=== PATIENT | female | born 1990 | race Caucasian/White ===

== ENCOUNTER 2019-12-28 02:14 | Inpatient (IN) ==
[2019-12-28] MEDS ORDERED: ACETAMINOPHEN 325 MG TAB PO PRN ×2 (03:02→19:21)
[2019-12-28] MEDS ORDERED: BETAMETH SOD PHOS/ACETATE IA 6 MG/ML IM STA (03:02)
[2019-12-28] MEDS ORDERED: ONDANSETRON INJ 2 MG/ML 2 ML VIAL IV PRN ×2 (03:02→10:36)
[2019-12-28] MEDS ORDERED: LACTATED RINGER'S 1,000 ML IV ONE (03:06)
--- NOTE | 2019-12-28 03:07 | History & Physical Report ---
Date of Service December 28, 2019 Assessment & Plan (1) contractions: (2) Left flank pain: Patient with c/o L flank pain. On exam, though cervical exam somewhat limited by patient intolerance, my best assessment is 4cm/90% so this obviously introduces concern for PTL. Will need to assess after 1-2hr to confirm, but giving steroids now due to suspicion. Also working up for L renal stone given her specific description of unilateral pain and reaction during L CVA exam. Discussed lack of clarity in diagnosis with patient and . Will begin LR bolus now as hydration may be helpful in event of either stone, contractions, or both. Pt aware that at this gestational age we would not stop labor and would plan to deliver here, though chances of baby transfer are higher than at full term. 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 History of Present Illness Chief Complaint: 29yo female at 35w5d of called at 1am with c/o L flank pain. Initial onset at 10pm, pain went away by itself. It resumed 11pm and remained constant after that. She stated it came on immediately after urination and did not get better at all. She initially tried tylenol and heat at home, but as this did not help, she came into L&D. States no h/o kidney stones. Has good FM, no [id number] pain that would fit the description of contractions, no LOF and no VB. No KESSLER, RUQ or R side pain at all, no vision changes. No dysuria prior to this pain and no hematuria. All Active Problems (Updated 07/03/19 @ 14:47 by Kam Appiah MD) Female infertility Supervision of normal first Primary Care Provider: NO PCP Allergies Allergy/AdvReac Type Severity Reaction Status Date / Time No Known Drug Allergies Allergy Unknown Verified 12/28/19 02:20 Home Medications Home Medications Medication Instructions Recorded Confirmed Type lactobacillus combination no.9 PO 09/11/19 12/17/19 History polysaccharide iron complex 150 mg 150 mg PO DAILY #30 cap 11/07/19 12/28/19 Rx iron capsule PNV cmb#95-ferrous fumarate-FA 1 tab PO DAILY 12/28/19 12/28/19 History [] Patient History Medical History History of varicella Surgical History S/P wisdom tooth extraction Family History Father Colorectal cancer Kidney disease Liver disease Diabetes Social History Preferred Language: [place] Communication Ability: Effective Lab Rn Required: No Beliefs That Will Affect Care: None marital status: Current Living Situation: Spouse Other Information That Helps Us Care for You: No Feels Safe at Home: Yes Safety Concerns: Feels Safe At This Time Smoking Status: Never smoker Second Hand Exposure: No ; Hx Alcohol Use: No Hx Substance Use: No Review of Systems All systems reviewed & are unremarkable except as noted in HPI & below Physical Exam Constitutional: WD/WN, vitals as above no acute distress Eyes: PERRL, conjunctivae normal, anicteric sclerae ENMT: external ear and nose normal, oropharynx normal Neck: normal visual inspection Respiratory: normal respiratory effort and able to speak in complete sentences; no respiratory distress and does not use accessory muscles Cardiovascular: Rate/Rhythm: regular rate and regular rhythm Gastrointestinal (Abdomen): Inspection/Auscultation: + abdomen distended (gravid); no abdominal wall ecchymosis Percussion/Palpation: abdomen nontender, no guarding and abdomen not rigid (Does not palpate firm with ctx.) Patient is without CVA TTP on R. She jumped visibly with CVA percussion on L, but when asked, states there is "not really" pain there. Difficult to tell if patient is being stoic. Notes tender with palpation around L flank and states that is actually worse than the renal area / back. Musculoskeletal: no cyanosis or clubbing, extremities motor strength 5/5 Skin: no rashes, warm and dry Neurologic: patellar DTR's 2+ bilat, sensation intact normal touch/pain/proprioception Psychiatric: A+Ox3, euthymic affect Genitourinary: Manual OB Exam: + cervical dilation (limited by patient tolerance / positioning - fists under buttocks) 4 cm, + cervical effacement 90%, + station -2 and + amniotic fluid (no leaking evident) OB Exam Monitor Tracing: + external uterine monitor used (appears to be ctx Q2min) and + category I Results & Data Vital Signs (Past 12 Hours) Vital Signs Temp Pulse Resp BP 12/28/19 02:24 98.1 F 78 18 105/58 L 12/28/19 02:19 78 105/58 L Code Status & VTE Plan VTE Prophylaxis Plan VTE Prophylaxis will be ordered: Yes Coding Level of Care Code None Diagnoses contractions O47.9 Left flank pain R10.9
[2019-12-28 03:27] LABS: Appearance Urine Cloudy (Clear); Bilirubin Urine Negative (Negative); Blood Urine Negative (Negative); Color Urine Yellow; Epithelial Cell Urine Auto >30 /lpf (0-5); Glucose Urine UA Negative (Negative); Ketones Urine 1+ (Negative); Leukocyte Esterase Urine Trace (Negative); Nitrite Urine Negative (Negative); Protein Urine Negative (Negative); RBC Urine Automated 0-4 /hpf (0-4); Specific Gravity Urine 1.016 (1.000-1.030); Urobilinogen Urine Negative (Negative); pH Urine 7.5 (4.5-7.5)
[2019-12-28 03:28] LABS: Basophils # (auto) 0.02 K/uL (0-0.2); Basophils % (auto) 0.1 %; Eosinophils # (auto) 0.07 K/uL (0-0.5); Eosinophils % (auto) 0.5 %; Hemoglobin 11.2 g/dL (12.0-16.0); Immature Granulocytes # (auto) 0.22 K/uL (0.00-0.02); Immature Granulocytes % (auto) 1.6 %; Lymphocytes # (auto) 0.97 K/uL (1.2-3.4); Lymphocytes % (auto) 7.1 %; Mean Corpuscular Hemoglobin 28.4 pg (25-34); Mean Corpuscular Volume 86.3 fL (80-100); Monocytes # (auto) 1.14 K/uL (0.11-0.59); Monocytes % (auto) 8.3 %; Neutrophils % (auto) 82.4 %; Platelet Count 187 K/uL (130-400); RDW Coefficient of Variation 15.8 % (11.5-14.5); RDW Standard Deviation 50.2 fL (36.4-46.3); Red Blood Count 3.94 M/uL (4.2-5.4); White Blood Count 13.72 K/uL (4.8-10.8)
[2019-12-28 03:45] LABS: Albumin Level 2.4 gm/dl (3.4-5.0); BUN Creatinine Ratio 13.7 (10-20); Calcium 8.9 mg/dl (8.5-10.1); Creatinine Clr Calc Pharmacy 112.7 ml/min; Est GFR (African American) 137.4; Est GFR (Non-African American) 118.5; Potassium 3.8 mmol/L (3.5-5.1)
[2019-12-28 03:48] LABS: Albumin Globulin Ratio 0.6 (0.9-2); Bilirubin,Total 0.2 mg/dl (0.2-1); Globulin 3.7 gm/dl (2.5-4.0); Total Protein 6.1 gm/dl (6.4-8.2)
[2019-12-28 04:00] LABS: Amorphous Sediment Urine Present (None Prsent); Mucus Urine Present (None Prsent)
[2019-12-28] MEDS ORDERED: LACTATED RINGER'S 1,000 ML IV PRN (04:01)
[2019-12-28] MEDS ORDERED: PENICILLIN G POTASSIUM 6 MU in DEXTROSE 5% 250 ML IV STA (04:01)
[2019-12-28] MEDS ORDERED: OXYTOCIN 30 UNITS/500 ML BAG IV PRN ×3 (04:01→19:21)
[2019-12-28 04:03] LABS: Renal Epithelial Cells Urine 0-5 /lpf (0-5)
[2019-12-28 04:04] LABS: Bacteria Urine Automated 1+ (Negative)
--- NOTE | 2019-12-28 04:06 | Labor Progress Brief Note ---
Date of Service December 28, 2019 Subjective Increasing discomfort. Patient observation here on L&D shows that she is obviously grimacing / reacting with contractions every 2 min and now palpates mod-strong as well. She notes pain has moved more to the front around her umbilicus. Assessment & Plan (1) labor in third trimester: Diagnosis now confirmed via cervical change = labor. BMTZ already given. Start abx for GBS unknown. Epidural on request. Peds notified via nursery staff. Explained to patient and that we are managing as PTL, can request epidural if needed, but at this GA with intact membranes will not be augmenting. Given UA now showing no blood, and flank pain has changed to abdominal / uterine pain, cancelled US as highly doubt renal stone. Physical Exam Physical Exam: Ctx palpate mod-strong. Q2min toco FHT Cat 1 Cvx 5/90/+1 Results & Data Vital Signs (Past 12 Hours) Vital Signs Temp Pulse Resp BP 12/28/19 02:24 98.1 F 78 18 105/58 L 12/28/19 02:19 78 105/58 L Laboratory Results Laboratory Results - last 24 hr 12/28/19 12/28/19 12/28/19 03:00 03:21 03:21 WBC 13.72 H RBC 3.94 L Hgb 11.2 L Hct 34.0 L MCV 86.3 MCH 28.4 MCHC Pending RDW Std Deviation 50.2 H RDW Coeff of [place] 15.8 H Plt Count 187 MPV 9.0 Immature Gran % (Auto) 1.6 Neut % (Auto) 82.4 Lymph % (Auto) 7.1 [place] % (Auto) 8.3 Eos % (Auto) 0.5 Baso % (Auto) 0.1 Immature Gran # (Auto) 0.22 H Neut # (Auto) 11.30 H Lymph # (Auto) 0.97 L [place] # (Auto) 1.14 H Eos # (Auto) 0.07 Baso # (Auto) 0.02 Sodium 138 Potassium 3.8 Chloride 106 Carbon Dioxide 27 Anion Gap 5.0 BUN 9 Creatinine 0.66 Est Cr Clr Drug Dosing 112.7 Est GFR ( Amer) 137.4 Est GFR (Non-Af Amer) 118.5 BUN/Creatinine Ratio 13.7 Glucose 125 H Calcium 8.9 Total Bilirubin 0.2 AST 26 ALT 26 Alkaline Phosphatase 141 H Total Protein 6.1 L Albumin 2.4 L Globulin 3.7 Albumin/Globulin Ratio 0.6 L Urine Color Yellow Urine Appearance Cloudy A Urine pH 7.5 Ur Specific [place] 1.016 Urine Protein Negative Urine Glucose (UA) Negative Urine Ketones 1+ H Urine Blood Negative Urine Nitrite Negative Urine Bilirubin Negative Urine Urobilinogen Negative Ur Leukocyte Esterase Trace H Urine WBC (Auto) 5-10 H Urine RBC (Auto) 0-4 U Hyaline Cast (Auto) 1-5 U Epithel Cells (Auto) >30 H Urine Bacteria (Auto) 1+ H Ur Renal Epithelial Cell 0-5 Amorphous Sediment Present A Granular Casts 1-5 H Urine Mucus Present A Coding Level of Care Code None Diagnoses labor in third trimester O60.03
[2019-12-28 04:10] LABS: Mean Corpuscular Hgb Conc 32.9 g/dL (32-36)
[2019-12-28] MEDS: LACTATED RINGER'S 1,000 ML IV PRN ×2 (04:21→10:18)
--- NOTE | 2019-12-28 07:45 | Labor Progress Brief Note ---
Date of Service December 28, 2019 Subjective Pain is more towards her back again, less in the belly. Still severe enough that she is visibly uncomfortable. Assessment & Plan (1) labor in third trimester: Patient in labor based on cervical change that occurred shortly after admission. She was then started on antibiotics for Group B Strep unknown at GA <37wk. She was also given a tylenol, although she was never febrile, due to intermittently elevated heart rate baseline and for discomfort. In the following several hours her contractions have spaced apart and FHT are consistently Cat 1. Cervix has stabilized for now at 5cm. Discussed that although I expect her dilation to progress at some point, it is possible that early infection was the trigger for her PTL and the antibiotic therapy is slowing the process. Plan continued observation and antibiotics for now. labor delivery status: without delivery Qualified Code(s): O60.03 - labor without delivery, third trimester Physical Exam Physical Exam: [place] has spaced apart significantly. FHT Cat 1. tachycardia noted at times after her admission has resolved, baseline now 145. Cervix unchanged at 5/90/+1. Results & Data Vital Signs (Past 12 Hours) Vital Signs Temp Pulse Resp BP 12/28/19 07:07 97.5 F L 76 20 118/56 L 12/28/19 05:28 98.4 F 83 16 116/65 12/28/19 04:23 98.6 F 12/28/19 02:24 98.1 F 78 18 105/58 L 12/28/19 02:19 78 105/58 L Coding Level of Care Code None Diagnoses labor in third trimester O60.03 labor delivery status: without delivery
[2019-12-28] MEDS: PENICILLIN G POTASSIUM 3 MU in DEXTROSE 5% 100 ML IV PRN ×3 (08:44→17:07)
[2019-12-28] MEDS ORDERED: BUPIVACAINE 0.25% 30 ML VIAL ONE (09:45)
[2019-12-28] MEDS ORDERED: fentaNYL citrate 100 MCG/2 ML VIAL ONE (09:45)
[2019-12-28] MEDS ORDERED: ePHEDrine sulfate 50 MG/ML AMP ONE (09:45)
[2019-12-28] MEDS ORDERED: fentaNYL 2MCG/ML ROPIV 1.25MG/ML 100 ML BAG EPI ONE (09:45)
--- NOTE | 2019-12-28 09:51 | Labor Progress Brief Note ---
Date of Service December 28, 2019 Subjective Reason For Note: Routine Evaluation pt having constant back pain and ctx on top of this. she is uncomfortable. Assessment & Plan (1) labor in third trimester: cx change continues c/w labor. desires epidural for pain. then plan arom. she is s/p pcn x 2 doses. peds made aware of plan and my request of presence at delivery--told nursery nurse as md was not immediately avail to discuss. labor delivery status: without delivery Qualified Code(s): O60.03 - labor without delivery, third trimester Physical Exam Constitutional: WD/WN, vitals as above Genitourinary: Manual OB Exam: + cervical dilation 6 cm, + cervical effacement 100% and + station + 2 OB Exam Monitor Tracing: + external FHT monitor used (140 mod variability), + external uterine monitor used (q3-5), + category I and + normal FHT variability Results & Data Vital Signs (Past 12 Hours) Vital Signs Temp Pulse Resp BP 12/28/19 08:45 80 107/60 12/28/19 08:43 97.7 F 20 12/28/19 07:07 97.5 F L 76 20 118/56 L 12/28/19 05:28 98.4 F 83 16 116/65 12/28/19 04:23 98.6 F 12/28/19 02:24 98.1 F 78 18 105/58 L 12/28/19 02:19 78 105/58 L Coding Level of Care Code None Diagnoses labor in third trimester O60.03 labor delivery status: without delivery
--- NOTE | 2019-12-28 09:55 | Anesthesiology Consultation ---
Date of Service December 28, 2019 Assessment & Plan Chart Review Chart Review: Acceptable Risk for Surgery and Acceptable Risk for Labor Epidural Consults Requested none ASA ASA2 Proposed Anesthesia Anesthesia Type: Labor Epidural Risk / Benefits Reviewed With: PT / POA / Parent / Guardian, Accepts Plan and Informed Consent Obtained History Height/Weight Height: 5 ft 2 in Weight: 68.039 kg Allergies Allergy/AdvReac Type Severity Reaction Status Date / Time No Known Drug Allergies Allergy Unknown Verified 12/28/19 02:20 Medications Home Medications Medication Instructions Recorded Confirmed Last Taken polysaccharide iron complex 150 mg 150 mg PO DAILY #30 cap 11/07/19 12/28/19 12/27/19 20:00 iron capsule PNV cmb#95-ferrous fumarate-FA 1 tab PO DAILY 12/28/19 12/28/19 12/27/19 20:00 [] Active Medications Generic Name Dose Route Start Last Admin Trade Name Freq PRN Reason Stop Dose Admin Lactated Ringer's 1,000 mls @ 125 mls/hr 12/28/19 03:02 12/28/19 10:18 Lr IV 01/27/20 03:01 125 mls/hr .Q8H PRN Administration L&D Protocol Protocol Penicillin G Potassium 3 mu/ 106 mls @ 100 mls/hr 12/28/19 04:01 12/28/19 08:44 Dextrose IV 01/07/20 04:00 100 mls/hr Q4H PRN Administration Give until delivery NPO Last Intake of Fluids Comment: assume full Last Intake of Solids Comment: assume full Past Medical History Medical History History of varicella Exercise / Class Metabolic Activity II 4-5 Yardwork/Stairs/Walk up hill Past Family History Family History Father Colorectal cancer Kidney disease Liver disease Diabetes Past Surgical History Surgical History S/P wisdom tooth extraction Past Anesthesia History No Hx of Anesthesia Complications and No Family Hx of Anesthesia Complications History of PONV No Hx of PONV and No Hx of Motion Sickness Social History Smoking Status: Never smoker Hx Alcohol Use: No Hx Substance Use: No substance use type: does not use Physical Exam Vital Signs Last Vital Signs Temp 36.5 C 12/28/19 08:43 Pulse 86 12/28/19 10:35 Resp 20 12/28/19 08:43 BP 117/69 12/28/19 10:35 Pulse Ox 100 12/28/19 10:31 ENMT Mouth: no TMJ abnormality Thyromental Distance: > or= 3.5 Finger Breadths Mallampati Class: II Neck normal visual inspection and trachea midline; neck extension not limited Respiratory normal respiratory effort Auscultation: lungs clear to auscultation bilaterally Cardiovascular Rate/Rhythm: regular rate and regular rhythm Heart Sounds: no murmur Musculoskeletal Spine: normal cervical ROM Extremities: full ROM of extremities Neurologic moves all extremities Psychiatric Orientation: alert and oriented x 3 Testing Laboratory Results 12/28/19 03:21 12/28/19 03:21 Urine Color Yellow 12/28/19 03:00 Urine Appearance Cloudy (Clear) A 12/28/19 03:00 Urine pH 7.5 (4.5-7.5) 12/28/19 03:00 Ur Specific [place] 1.016 (1.000-1.030) 12/28/19 03:00 Urine Protein Negative (Negative) 12/28/19 03:00 Urine Glucose (UA) Negative (Negative) 12/28/19 03:00 Urine Ketones 1+ (Negative) H 12/28/19 03:00 Urine Nitrite Negative (Negative) 12/28/19 03:00 Ur Leukocyte Esterase Trace (Negative) H 12/28/19 03:00 Urine WBC (Auto) 5-10 /hpf (0-5) H 12/28/19 03:00 Urine RBC (Auto) 0-4 /hpf (0-4) 12/28/19 03:00 U Hyaline Cast (Auto) 1-5 /lpf (0-5) 12/28/19 03:00 U Epithel Cells (Auto) >30 /lpf (0-5) H 12/28/19 03:00 Urine Bacteria (Auto) 1+ (Negative) H 12/28/19 03:00
[2019-12-28] MEDS ORDERED: METOCLOPRAMIDE HCL 20 MG in SODIUM CHLORIDE 0.9% 50 ML IV PRN (10:36)
[2019-12-28] MEDS ORDERED: NALOXONE HCL 0.4 MG/1 ML VIAL/CARP IV PRN (10:36)
[2019-12-28] MEDS ORDERED: DiphenhydrAMINE HCL 50 MG/ML VIAL IV PRN (10:36)
[2019-12-28] MEDS ORDERED: NALOXONE HCL 1 MG in SODIUM CHLORIDE 0.9% 1000ML 1,000 ML IV PRN (10:36)
[2019-12-28] MEDS ORDERED: fentaNYL 2MCG/ML ROPIV 1.25MG/ML 100 ML BAG EPI PRN (10:36)
[2019-12-28] MEDS ORDERED: ePHEDrine sulfate 50 MG/ML AMP IV PRN (10:36)
[2019-12-28] MEDS ORDERED: PROMETHAZINE HCL 25 MG in SODIUM CHLORIDE 0.9% 50 ML IV PRN (10:36)
[2019-12-28] MEDS ORDERED: NALBUPHINE HCL INJ 10 MG/ML AMP IV PRN (10:36)
--- NOTE | 2019-12-28 11:14 | Labor Progress Brief Note ---
Date of Service December 28, 2019 Subjective Reason For Note: Routine Evaluation pt now comfortable with epidural. Assessment & Plan (1) labor in third trimester: will see how arom facilitates labor pattern. fhts categ 1. comfortable with epidural. labor delivery status: without delivery Qualified Code(s): O60.03 - labor without delivery, third trimester Physical Exam Constitutional: WD/WN, vitals as above Psychiatric: A+Ox3, euthymic affect Genitourinary: Manual OB Exam: + cervical dilation 6 cm, + cervical effacement 80%, + station + 1 and + amniotic fluid (AROM) clear OB Exam Monitor Tracing: + external FHT monitor used (140 mod variability), + external uterine monitor used (q2), + category I and + normal FHT variability Results & Data Vital Signs (Past 12 Hours) Vital Signs Temp Pulse Resp BP Pulse Ox 12/28/19 11:11 70 97 12/28/19 11:06 96 H 99 12/28/19 11:01 88 100 12/28/19 10:56 82 99 12/28/19 10:52 84 112/69 12/28/19 10:51 80 99 12/28/19 10:47 85 121/69 12/28/19 10:46 92 H 99 12/28/19 10:42 82 118/71 12/28/19 10:41 84 99 12/28/19 10:36 80 100 12/28/19 10:35 86 117/69 12/28/19 10:33 77 111/66 12/28/19 10:31 81 113/68 100 12/28/19 10:29 85 113/64 12/28/19 10:27 83 109/62 12/28/19 10:26 91 H 99 12/28/19 10:25 76 113/63 12/28/19 10:23 77 106/57 L 12/28/19 10:21 77 108/56 L 100 12/28/19 10:19 90 81 L 12/28/19 10:16 100 H 100 12/28/19 10:11 86 100 12/28/19 10:06 89 100 12/28/19 10:01 82 100 12/28/19 09:56 85 100 12/28/19 09:50 76 113/64 12/28/19 08:45 80 107/60 12/28/19 08:43 97.7 F 20 12/28/19 07:07 97.5 F L 76 20 118/56 L 12/28/19 05:28 98.4 F 83 16 116/65 12/28/19 04:23 98.6 F 12/28/19 02:24 98.1 F 78 18 105/58 L 12/28/19 02:19 78 105/58 L Coding Level of Care Code None Diagnoses labor in third trimester O60.03 labor delivery status: without delivery
--- NOTE | 2019-12-28 13:59 | Labor Progress Brief Note ---
Date of Service December 28, 2019 Subjective Reason For Note: Routine Evaluation feels baby movement up high on abdomen Assessment & Plan (1) labor in third trimester: good cx change. fhts categ 1. pcn for gbs unknown. labor delivery status: without delivery Qualified Code(s): O60.03 - labor without delivery, third trimester Physical Exam Constitutional: WD/WN, vitals as above Psychiatric: A+Ox3, euthymic affect Genitourinary: Manual OB Exam: + cervical dilation 7 cm, + cervical effacement 100% and + station + 1 OB Exam Monitor Tracing: + external FHT monitor used (145 mod variability), + external uterine monitor used (q2-3), + category I and + normal FHT variability Results & Data Vital Signs (Past 12 Hours) Vital Signs Temp Pulse Resp BP Pulse Ox 12/28/19 13:51 74 100 12/28/19 13:46 80 100 12/28/19 13:42 75 106/60 12/28/19 13:41 76 100 12/28/19 13:36 80 99 12/28/19 13:31 76 99 12/28/19 13:26 71 103/59 L 97 12/28/19 13:21 67 98 12/28/19 13:16 80 99 12/28/19 13:12 70 114/60 12/28/19 13:11 75 100 12/28/19 13:06 78 100 12/28/19 13:01 71 99 12/28/19 12:56 75 105/55 L 100 12/28/19 12:51 78 100 12/28/19 12:50 99.0 F 20 12/28/19 12:46 67 99 12/28/19 12:41 72 106/56 L 100 12/28/19 12:36 71 98 12/28/19 12:31 67 99 12/28/19 12:26 66 103/59 L 99 12/28/19 12:21 81 97 12/28/19 12:16 75 99 12/28/19 12:12 71 107/55 L 12/28/19 12:11 71 98 12/28/19 12:06 77 98 12/28/19 12:01 72 98 12/28/19 11:56 73 105/56 L 98 12/28/19 11:51 74 98 12/28/19 11:46 79 99 12/28/19 11:42 75 109/58 L 12/28/19 11:41 74 99 12/28/19 11:36 78 100 12/28/19 11:31 75 98 12/28/19 11:26 73 104/61 98 12/28/19 11:21 71 99 12/28/19 11:16 72 98 12/28/19 11:12 98.1 F 64 110/62 12/28/19 11:11 70 97 12/28/19 11:06 96 H 99 12/28/19 11:01 88 100 12/28/19 10:56 82 99 12/28/19 10:52 84 112/69 12/28/19 10:51 80 99 12/28/19 10:47 85 121/69 12/28/19 10:46 92 H 99 12/28/19 10:42 82 118/71 12/28/19 10:41 84 99 12/28/19 10:36 80 100 12/28/19 10:35 86 117/69 12/28/19 10:33 77 111/66 12/28/19 10:31 81 113/68 100 12/28/19 10:29 85 113/64 12/28/19 10:27 83 109/62 12/28/19 10:26 91 H 99 12/28/19 10:25 76 113/63 12/28/19 10:23 77 106/57 L 12/28/19 10:21 77 108/56 L 100 12/28/19 10:19 90 81 L 12/28/19 10:16 100 H 100 12/28/19 10:11 86 100 12/28/19 10:06 89 100 12/28/19 10:01 82 100 12/28/19 09:56 85 100 12/28/19 09:50 76 113/64 12/28/19 08:45 80 107/60 12/28/19 08:43 97.7 F 20 12/28/19 07:07 97.5 F L 76 20 118/56 L 12/28/19 05:28 98.4 F 83 16 116/65 12/28/19 04:23 98.6 F 12/28/19 02:24 98.1 F 78 18 105/58 L 02/01/20 02:19 78 105/58 L Coding Level of Care Code None Diagnoses labor in third trimester O60.03 labor delivery status: without delivery
--- NOTE | 2019-12-28 19:19 | Delivery Summary ---
Vaginal Delivery Summary Date of Service December 28, 2019 Vaginal Delivery Summary The patient dilated to complete and pushed to deliver a viable male infant Apgars 8 and 9 via over 2nd degree perineal laceration. Mouth and nose bulb suctioned at perineum. Shoulders and body delivered with ease. was vigorous and crying at . Cord clamped at 30 seconds of life and to maternal abdomen where the cord was then doubly clamped and cut. Placenta delivered spontaneously and intact, three-vessel cord. Hemostasis achieved with dilute pitocin and uterine massage. Laceration repaired in the usual fashion with 3-0 vicryl. Cord blood obtained. Cervix and sulci intact. EBL 300 cc. Mother and baby stable recovery. [facility] Vaginal Delivery Charge Vaginal Delivery Codes: 93669 global code for the antepartum, delivery, and post-
[2019-12-28] MEDS ORDERED: OXYCODONE/ACETAMINOPHEN 5mg/325mg TAB PO PRN (19:21)
[2019-12-28] MEDS ORDERED: OXYTOCIN 20 UNITS in LACTATED RINGER'S 1,000 ML IV SCH (19:30)
[2019-12-28] MEDS ORDERED: SUPERCREAM 0.870% 15 GM JAR EXT PRN (19:34)
[2019-12-28] MEDS ORDERED: BENZOCAINE 20% AER SPR 82.5 GM CAN EXT PRN (19:34)
[2019-12-28] MEDS ORDERED: HYDROCORTISONE ACETATE 25 MG SUPP PR PRN (19:34)
[2019-12-28] MEDS ORDERED: DIPHTHERIA/TETANUS/PERTUSSIS 0.5 ML SYR/VIAL IM ONE (19:34)
[2019-12-28] MEDS: IBUPROFEN 600 MG TAB PO PRN (20:59)
[2019-12-28] MEDS: DOCUSATE SODIUM 100 MG CAP PO SCH (22:30)
--- NOTE | 2019-12-28 22:41 | Anesthesiology Progress Note ---
Date of Service December 28, 2019 Anesthesia Post Procedure Vital Signs Vital Signs: Temp Pulse Pulse Resp BP BP Pulse Ox 12/28/19 22:05 36.9 C 68 20 106/64 12/28/19 21:29 75 100/54 L 12/28/19 21:15 75 20 100/54 L 12/28/19 21:14 80 101/54 L 12/28/19 20:59 90 101/58 L 12/28/19 20:45 90 18 101/58 L 12/28/19 20:44 79 105/55 L 12/28/19 20:29 88 104/55 L 12/28/19 20:15 86 20 108/58 L 12/28/19 20:14 86 108/58 L 12/28/19 20:01 80 104/50 L 12/28/19 20:00 86 20 108/58 L 12/28/19 19:45 88 18 109/55 L 12/28/19 19:44 88 109/55 L 12/28/19 19:30 90 20 114/57 L 12/28/19 19:29 90 114/57 L 12/28/19 19:15 36.9 C 96 H 20 110/55 L 12/28/19 19:01 148 H 99 12/28/19 18:59 104 H 84 L 12/28/19 18:56 109 H 120/59 L 99 12/28/19 18:51 113 H 99 12/28/19 18:48 114 H 79 L 12/28/19 18:46 143 H 98 12/28/19 18:42 126 H 117/56 L 12/28/19 18:41 137 H 96 12/28/19 18:36 108 H 94 12/28/19 18:31 114 H 99 12/28/19 18:27 105 H 116/59 L 12/28/19 18:26 112 H 77 L 12/28/19 18:22 102 H 91 12/28/19 18:21 97 H 97 12/28/19 18:16 79 100 12/28/19 18:11 82 107/58 L 100 12/28/19 18:06 83 98 12/28/19 18:01 89 99 12/28/19 17:57 78 116/64 12/28/19 17:56 79 98 12/28/19 17:51 83 100 12/28/19 17:46 82 99 12/28/19 17:41 97 H 124/69 96 12/28/19 17:40 105 H 94 12/28/19 17:36 77 100 12/28/19 17:31 78 100 12/28/19 17:27 37.1 C 80 20 132/68 12/28/19 17:26 97 H 100 12/28/19 17:21 80 98 12/28/19 17:16 80 100 12/28/19 17:12 73 109/61 12/28/19 17:11 68 99 12/28/19 17:06 71 100 12/28/19 17:01 73 100 12/28/19 16:56 81 109/61 100 12/28/19 16:51 89 100 12/28/19 16:46 84 100 12/28/19 16:41 77 20 110/59 L 100 12/28/19 16:36 72 99 12/28/19 16:31 73 100 12/28/19 16:27 68 109/59 L 12/28/19 16:26 66 99 12/28/19 16:21 74 100 12/28/19 16:16 69 99 12/28/19 16:13 71 106/59 L 12/28/19 16:11 73 100 12/28/19 16:06 85 100 12/28/19 16:01 83 100 12/28/19 15:57 70 20 115/58 L 12/28/19 15:56 71 100 12/28/19 15:51 75 99 12/28/19 15:46 75 100 12/28/19 15:41 71 104/60 99 12/28/19 15:36 81 99 12/28/19 15:31 77 100 12/28/19 15:26 80 102/55 L 100 12/28/19 15:21 80 99 12/28/19 15:16 74 99 12/28/19 15:12 85 110/55 L 12/28/19 15:11 85 99 12/28/19 15:06 86 99 12/28/19 15:01 84 100 12/28/19 14:56 78 18 113/63 99 12/28/19 14:51 78 100 12/28/19 14:46 69 99 12/28/19 14:45 98 H 92 12/28/19 14:42 71 117/59 L 12/28/19 14:41 72 100 12/28/19 14:36 71 99 12/28/19 14:31 73 98 12/28/19 14:26 75 109/61 99 12/28/19 14:21 75 100 12/28/19 14:16 82 100 12/28/19 14:12 74 108/62 12/28/19 14:11 72 99 12/28/19 14:06 72 100 12/28/19 14:01 73 100 12/28/19 13:57 70 20 111/60 12/28/19 13:56 83 100 12/28/19 13:51 74 100 12/28/19 13:46 80 100 12/28/19 13:42 75 20 106/60 12/28/19 13:41 76 100 12/28/19 13:36 80 99 12/28/19 13:31 76 99 12/28/19 13:26 71 103/59 L 97 12/28/19 13:21 67 98 12/28/19 13:16 80 99 12/28/19 13:12 70 114/60 12/28/19 13:11 75 100 12/28/19 13:06 78 100 12/28/19 13:01 71 99 12/28/19 12:56 75 20 105/55 L 100 12/28/19 12:51 78 100 12/28/19 12:50 37.2 C 20 12/28/19 12:46 67 99 12/28/19 12:41 72 106/56 L 100 12/28/19 12:36 71 98 12/28/19 12:31 67 99 12/28/19 12:26 66 103/59 L 99 12/28/19 12:21 81 97 12/28/19 12:16 75 99 12/28/19 12:12 71 107/55 L 12/28/19 12:11 71 98 12/28/19 12:06 77 98 12/28/19 12:01 72 98 12/28/19 11:56 73 20 105/56 L 98 12/28/19 11:51 74 98 12/28/19 11:46 79 99 12/28/19 11:42 75 109/58 L 12/28/19 11:41 74 99 12/28/19 11:36 78 100 02/01/20 11:31 75 98 12/28/19 11:26 73 104/61 98 12/28/19 11:21 71 99 12/28/19 11:16 72 98 12/28/19 11:12 36.7 C 64 110/62 12/28/19 11:11 70 97 12/28/19 11:06 96 H 99 12/28/19 11:01 88 100 12/28/19 10:56 82 99 12/28/19 10:52 84 20 112/69 12/28/19 10:51 80 99 12/28/19 10:47 85 121/69 12/28/19 10:46 92 H 99 12/28/19 10:42 82 118/71 12/28/19 10:41 84 99 12/28/19 10:36 80 100 12/28/19 10:35 86 117/69 12/28/19 10:33 77 111/66 12/28/19 10:31 81 113/68 100 12/28/19 10:29 85 113/64 12/28/19 10:27 83 109/62 12/28/19 10:26 91 H 99 12/28/19 10:25 76 113/63 12/28/19 10:23 77 106/57 L 12/28/19 10:21 77 108/56 L 100 12/28/19 10:19 90 81 L 12/28/19 10:16 100 H 100 12/28/19 10:11 86 100 12/28/19 10:06 89 100 12/28/19 10:01 82 100 12/28/19 09:56 85 100 12/28/19 09:50 76 20 113/64 12/28/19 08:45 80 107/60 12/28/19 08:43 36.5 C 20 12/28/19 07:07 36.4 C L 76 20 118/56 L 12/28/19 05:28 36.9 C 83 16 116/65 12/28/19 04:23 37.0 C 12/28/19 02:24 36.7 C 78 18 105/58 L 12/28/19 02:19 78 105/58 L Pain Intensity Bilateral Anterior Abdomen: Pain Intensity: 0 Transfer of Care Handoff Completed per policy Notes Mental Status: alert / awake / arousable and participated in evaluation Patient Amnestic to Procedure: Yes Nausea / Vomiting: adequately controlled Pain: adequately controlled Airway Patency, RR, SpO2: stable & adequate BP & HR: stable & adequate Hydration State: stable & adequate Anesthetic Complications: no major complications apparent and Pt Satisfied with anesthetic care
[2019-12-29] MEDS: IBUPROFEN 600 MG TAB PO PRN ×5 (01:13→20:41)
[2019-12-29] MEDS: DOCUSATE SODIUM 100 MG CAP PO SCH ×2 (08:10→20:41)
--- NOTE | 2019-12-29 10:07 | Obstetrical Progress Note ---
Date of Service December 29, 2019 Assessment & Plan (1) delivery, delivered: doing well, routine care. cont to work on feeding. Day #:: 1 Subjective Ambulation: ambulating normally Voiding: no voiding problems Diet Tolerance:: regular diet Lochia:: Moderate Feeding Type:: breast feeding baby not latching well. working on that. feels well, denies complaints. no cp or sob. Physical Exam Constitutional WD/WN, vitals as above Respiratory normal respiratory effort, lungs clear to auscultation Cardiovascular Rate/Rhythm: regular rate and regular rhythm Gastrointestinal (Abdomen) Inspection/Auscultation: abdomen normal to inspection Percussion/Palpation: abdomen soft Fundus firm 1cm down Musculoskeletal nt calves trace edema Neurologic grossly normal Psychiatric A+Ox3, euthymic affect Results & Data Vital Signs (Past 12 Hours) Vital Signs Temp Pulse Resp BP Pulse Ox 12/29/19 07:45 97.5 F L 76 20 99/64 L 98 12/29/19 03:15 98.2 F 84 20 106/72 12/29/19 00:10 98.1 F 86 18 106/78
[2019-12-30] MEDS: IBUPROFEN 600 MG TAB PO PRN ×3 (01:19→20:12)
[2019-12-30] MEDS ORDERED: Nursing to Pharmacy Communication ONE (06:05)
--- NOTE | 2019-12-30 06:31 | Obstetrical Progress Note ---
Date of Service December 30, 2019 Assessment & Plan (1) delivery, delivered: Spring is a 29 yo on PPD 2 after pre-term vaginal delivery at 35w6d. - GBS unknown at time of delivery, treated prophylactically. Rh+, Rubella immune -Vitals reviewed and WNL -patient is doing clinically well discharge instructions reviewed. - After discharge will have 6 week followup with Darcie Carrillo. Subjective Ambulation: ambulating normally Voiding: no voiding problems Passing Gas:: Yes Diet Tolerance:: regular diet Lochia:: Small Feeding Type:: breast feeding Review of Systems Constitutional: no fever, no chills and no sweats Eyes: no worsening vision Respiratory: no cough and no dyspnea Cardiovascular: no chest pain, no palpitations, no edema and no calf pain Gastrointestinal: no nausea and no vomiting Genitourinary: no dysuria and no urinary frequency Neurologic: no headache(s) Physical Exam Constitutional: WD/WN, vitals as above no acute distress Respiratory: normal respiratory effort, lungs clear to auscultation does not use accessory muscles Auscultation: no crackles, no rales, no rhonchi, no wheezes and no pleural rub Cardiovascular: Rate/Rhythm: regular rate and regular rhythm Heart Sounds: normal S1 and normal S2; no gallop, no murmur and no cardiac rub Extremities: no calf tenderness and no pedal edema Gastrointestinal (Abdomen): Inspection/Auscultation: normal bowel sounds; abdomen not distended Percussion/Palpation: abdomen soft Genitourinary: Uterus: fundus firm, palpable 2 cm below the umbilicus Results & Data Vital Signs (Past 12 Hours) Vital Signs Temp Pulse Resp BP 12/29/19 23:50 36.7 C 76 18 101/63 12/29/19 20:50 36.8 C 76 18 105/68 Resident Activity Tracking Resident Involvement: Resident Care Provided Care Provided: OB Delivery
--- NOTE | 2019-12-30 06:58 | Obstetrical Progress Note ---
Date of Service December 30, 2019 Assessment & Plan (1) delivery, delivered: stable, ready for d/c home, instructions reviewed. f/u 6 wk pp check. Day #:: 2 Subjective Ambulation: ambulating normally Voiding: no voiding problems Diet Tolerance:: regular diet Lochia:: Small Feeding Type:: breast feeding baby latching better now. no other complaints. Physical Exam Constitutional WD/WN, vitals as above Respiratory normal respiratory effort, lungs clear to auscultation Cardiovascular Rate/Rhythm: regular rate and regular rhythm Gastrointestinal (Abdomen) Inspection/Auscultation: abdomen normal to inspection Percussion/Palpation: abdomen soft fundus firm @ umbilicus, needs to void this am Musculoskeletal nt calves tr edema Neurologic grossly normal Psychiatric A+Ox3, euthymic affect Results & Data Vital Signs (Past 12 Hours) Vital Signs Temp Pulse Resp BP 12/29/19 23:50 98.1 F 76 18 101/63 12/29/19 20:50 98.2 F 76 18 105/68
[2019-12-30] MEDS: DOCUSATE SODIUM 100 MG CAP PO SCH ×2 (07:50→22:43)
== END 2019-12-30 22:50 | disposition home or self-care (01) | DRG 807 ==
LOC: OPB 02:14 → 4S1 02:18 → 4S2 22:00

== ENCOUNTER 2021-11-02 04:23 | Inpatient (IN) ==
[2021-11-02] MEDS ORDERED: LACTATED RINGER'S 1,000 ML IV PRN (05:12)
[2021-11-02] MEDS ORDERED: OXYTOCIN 30 UNITS/500 ML BAG IV PRN ×2 (05:12→06:10)
[2021-11-02] MEDS ORDERED: PENICILLIN G POTASSIUM 6 MU in DEXTROSE 5% 250 ML IV STA (05:12)
--- NOTE | 2021-11-02 05:21 | History & Physical Report ---
Date of Service November 02, 2021 Assessment & Plan (1) SROM (spontaneous rupture of membranes): Plan: 30 y/o at 38 3/7 wga admit w/ SROM, labor VSS Fetus cat 1 Labor - manage expectantly GBS+, pcn ordered epidural prn History of Present Illness Chief Complaint: leaking, contractions Primary Care Provider: NO PCP 30 y/o at 38 3/7 wga w/ BRITTA 11/13 who presents w/ c/o LOF around 330, contractions since then. 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 Hx: G1 2020 at 35 wks G2 current regular cycles 2019 neg cytology denies hx STIs Allergies Allergy/AdvReac Type Severity Reaction Status Date / Time No Known Drug Allergies Allergy Unknown Verified 11/01/21 09:05 Home Medications Medication Instructions Recorded Confirmed Type ferrous sulfate PO 09/22/21 11/01/21 History prenat.vits,mariel,vat-mors-njqmk PO 09/22/21 11/01/21 History Patient History Medical History Female infertility History of varicella delivery, delivered Surgical History S/P wisdom tooth extraction Family History (Updated 04/07/21 @ 09:53 by Alison Romero) Father Colorectal cancer Kidney disease Liver disease Diabetes Denies family history of Ovarian cancer Breast cancer Social History (Updated 04/07/21 @ 09:54 by Alison Romero) Smoking Status: Never smoker Second Hand Exposure: No; Do You Dip or Chew Tobacco: No; Hx Alcohol Use: No Hx Substance Use: No Preferred Language: Senegalese Communication Ability: Effective Communication Ability Comment: pt wears contacts 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: No Beliefs That Will Affect Care: None marital status: marital status details: Rony Woods (30) [phone] Current Living Situation: Family Current Living Situation Comment: lives with spouse, child, dog current occupational status: employed 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 [employer] Other Information That Helps Us Care for You: No Feels Safe at Home: Yes Safety Concerns: Feels Safe At This Time Assistive Devices: Contacts Physical Exam Constitutional: WD/WN, vitals as above Respiratory: normal respiratory effort; no respiratory distress and no labored breathing Genitourinary: Manual OB Exam: + cervical dilation 5 cm, + cervical effacement 90%, + station -1 and + amniotic fluid (+nitrazine and ferning, pooling not noted but head well applied) OB Exam Monitor Tracing: + external FHT monitor used, + external uterine monitor used (q4-5) and + category I (145/mod/+accel/- decel) Results & Data ([facility]) Vital Signs (Past 12 Hours) Vital Signs Temp Pulse Resp BP 11/02/21 04:43 80 128/72 11/02/21 04:42 39 L 94/69 L 11/02/21 04:40 98.4 F 80 18 128/72 Laboratory Results OB Labs: Blood Type B Positive 04/15/21 Antibody Screen NEGATIVE 04/15/21 Hemoglobin 10.0 g/dL (12.0-16.0) L 10/05/21 Hematocrit 31.1 % (37-47) L 10/05/21 Mean Corpuscular Volume 84.1 fL (80-100) 10/05/21 Platelet Count 155 K/uL (130-400) 10/05/21 Rubella IgG Antibody Immune (Immune) 04/15/21 Rapid Plasma Reagin Nonreactive (Nonreactive) 04/15/21 Hepatitis B Surface Antigen Neg (Neg) 04/15/21 HIV (1&2) Ab and P24 Ag, 4th Gener Neg (Neg) 04/15/21 Glucose 1 Hour 50 gm Load 121 mg/dl (70-130) 08/27/21 OB Optional Labs: Hemoglobin Electrophoresis Interp see note 11/05/19 Chlamydia trachomatis RNA NOT DETECTED (NOT DETECTED) 04/15/21 Neisseria gonorrhoeae RNA NOT DETECTED (NOT DETECTED) 04/15/21 Thyroid Stimulating Hormone (TSH) 1.410 uIu/ml (0.300-4.500) 03/27/19 Labs Reviewed: declines cf/sma neg panorama--akh GBS+ Coding Level of Care Code None Diagnoses SROM (spontaneous rupture of membranes)
[2021-11-02] MEDS ORDERED: SODIUM CHLORIDE 0.9% INJ 10 ML VIAL ONE (05:22)
[2021-11-02] MEDS ORDERED: BUPIVACAINE 0.25% 30 ML VIAL ONE (05:22)
[2021-11-02] MEDS ORDERED: ePHEDrine sulfate 50 MG/ML AMP ONE (05:22)
[2021-11-02] MEDS ORDERED: fentaNYL citrate 100 MCG/2 ML VIAL ONE (05:22)
[2021-11-02] MEDS ORDERED: fentaNYL 2MCG/ML ROPIVACAINE 1.25MG/ML 100 ML BAG EPI ONE (05:23)
[2021-11-02] MEDS ORDERED: LIDOCAINE 1% LOCAL 20 ML VIAL ONE (05:42)
[2021-11-02] MEDS ORDERED: LIDOCAINE/EPINEPHRINE 1% 20 ML VIAL ONE (05:42)
--- NOTE | 2021-11-02 06:09 | Delivery Summary ---
Vaginal Delivery Summary Date of Service November 02, 2021 Vaginal Delivery Summary and 2nd Degree LAC PREOPERATIVE DIAGNOSIS: 1. Single intrauterine at 38 3/7 wga 2. Labor 3. GBS+ POSTOPERATIVE DIAGNOSIS: 1. Single intrauterine at 38 3/7 wga 2. Labor 3. GBS+ 4. Delivered PROCEDURE: 1. Normal spontaneous vaginal delivery. SURGEON: Jenny Portillo MD ANESTHESIA: Epidural. ESTIMATED BLOOD LOSS: 300 mL FLUIDS: Continuous LR. URINE OUTPUT: None. COMPLICATIONS: None. CONDITION: Stable. INDICATIONS: 30 y/o at 38 3/7 wga presented after gush of fluid around 330. Shortly after, contractions began. On arrival, she was found to be 5cm and spontaneously ruptured. Labs and penicillin were ordered for GBS prophylaxis however she rapidly progressed to 10cm over 20 minutes and desired to push. FINDINGS: A viable female , weight pending with Apgars of 8 and 9 at 1 and 5 minutes respectively. SPECIMEN: Cord blood OPERATIVE REPORT: The patient progressed to 10 cm, 100% effaced and +2 station, pushed over intact perineum with anesthesia to deliver a viable female , Apgars as above. Head of delivered in ZEE position. No nuchal cord was present. Body and shoulders were delivered without difficulty. was deli anju to maternal abdomen and nursing staff. Delayed cord clamping was performed for 60 seconds. Cord was clamped and cut. Cord blood was obtained. Placenta delivered spontaneously intact with 3-vessel cord. IV oxytocin and fundal massage were given for excellent hemostasis. Vagina, cervix, perineum, and placenta were inspected. A second degree laceration was noted and repaired in the usual fashion using 3-0 Vicryl. Sponge and needle counts correct x2. No sponges were left behind. Mother and stable in immediate period. [facility] [place] Vaginal Delivery Charge Vaginal Delivery Codes: 98189 global code for the antepartum, delivery, and post- Delivery Type Details: and 2nd Degree LAC
[2021-11-02] MEDS ORDERED: SUPERCREAM 0.870% 15 GM JAR EXT PRN (06:10)
[2021-11-02] MEDS ORDERED: HYDROCORTISONE ACETATE 25 MG SUPP PR PRN (06:10)
[2021-11-02] MEDS ORDERED: BENZOCAINE 20% AER SPR 82.5 GM CAN EXT PRN (06:10)
[2021-11-02] MEDS ORDERED: oxyCODONE/ACETAMINOPHEN 5mg/325mg TAB PO PRN (06:10)
[2021-11-02] MEDS ORDERED: ACETAMINOPHEN 325 MG TAB PO PRN (06:10)
[2021-11-02] MEDS ORDERED: DIPHTHERIA/TETANUS/PERTUSSIS 0.5 ML SYR/VIAL IM ONE (06:10)
[2021-11-02] MEDS ORDERED: oxyCODONE/ACETAMINOPHEN 5mg/325mg TAB PO ONE (06:13)
[2021-11-02 06:38] LABS: Hematocrit (blood only) 32.3 % (37-47); Mean Corpuscular Hemoglobin 25.4 pg (25-34); Mean Platelet Volume 9.1 fL (7.4-10.4); Platelet Count 177 K/uL (130-400); RDW Coefficient of Variation 14.3 % (11.5-14.5); RDW Standard Deviation 42.9 fL (36.4-46.3); Red Blood Count 3.94 M/uL (4.2-5.4); White Blood Count 11.61 K/uL (4.8-10.8)
[2021-11-02] MEDS: IBUPROFEN 600 MG TAB PO PRN ×4 (08:05→19:54)
[2021-11-02] MEDS: PRENATAL VITAMIN 1 TAB PO SCH (08:05)
[2021-11-02] MEDS: DOCUSATE SODIUM 100 MG CAP PO SCH ×2 (08:05→19:55)
[2021-11-02] MEDS ORDERED: PENICILLIN G POTASSIUM 3 MU in DEXTROSE 5% 100 ML IV PRN (08:12)
[2021-11-03] MEDS: IBUPROFEN 600 MG TAB PO PRN ×2 (03:29→08:40)
--- NOTE | 2021-11-03 06:50 | Obstetrical Progress Note ---
Date of Service November 03, 2021 Assessment & Plan (1) Vaginal delivery: Doing well. Plan d/c. gbs positive mom so baby will have to be cleared by peds. Instructions reviewed. Day #:: 1 Subjective Ambulation: ambulating normally Voiding: no voiding problems Passing Gas:: Yes Diet Tolerance:: regular diet Lochia:: Small Feeding Type:: breast feeding Doing well. Desires d/c. Physical Exam Constitutional WD/WN, vitals as above Cardiovascular Extremities: no calf tenderness and no edema Gastrointestinal (Abdomen) soft, nt, nd ff/nt at u Results & Data ([facility]) Vital Signs (Past 12 Hours) Vital Signs Temp Pulse Resp BP Pulse Ox 11/03/21 03:15 36.4 C L 58 L 18 99/62 L 97 11/02/21 23:20 36.7 C 64 18 109/68 98 11/02/21 19:45 36.7 C 61 18 102/62 98
[2021-11-03] MEDS: DOCUSATE SODIUM 100 MG CAP PO SCH (08:40)
[2021-11-03] MEDS: PRENATAL VITAMIN 1 TAB PO SCH (08:40)
[2021-11-03] MEDS ORDERED: bisacodyL 5 MG TABEC PO SCH (20:00)
[2021-11-04] MEDS ORDERED: bisacodyL 10 MG SUPP PR PRN (06:10)
== END 2021-11-03 11:24 | disposition home or self-care (01) | DRG 807 ==
LOC: OPB 04:23 → 4S1 04:28 → 4N 08:37